=== PATIENT | female | born 1960 | race African-American/Black ===

== ENCOUNTER → 2022-06-23 | Emergency (ER) | payer OTHER ==
[~2022-06-23] VITALS: Ht 170.2 cm; Wt 70.3 kg
[2022-06-23 13:50] VITALS: BP 145/70
== END | disposition home or self-care (01) ==
LOC: ER 12:03
DX: S33.5XXA Sprain of ligaments of lumbar spine, initial encounter (principal); Z90.710 Acquired absence of both cervix and uterus; Z91.010 Allergy to peanuts; V89.2XXA Person injured in unspecified motor-vehicle accident, traffic, initial encounter; Y93.89 Activity, other specified; Y92.89 Other specified places as the place of occurrence of the external cause; Y99.8 Other external cause status